=== PATIENT | male | born 1950 ===

== ENCOUNTER 2019-02-17 08:50 | Emergency (ER) | payer OTHER ==
[~2019-02-17] VITALS: Ht 167.6 cm; Wt 82.6 kg
[2019-02-17] MEDS ORDERED: COZAAR100 MG (09:19)
[2019-02-17] MEDS ORDERED: ZOCOR20 MG (09:20)
[2019-02-17] MEDS ORDERED: GLYXAMBI 25 MG1 EACH (09:20)
[2019-02-17] MEDS ORDERED: FENOFIBRATE145 MG (09:20)
[2019-02-17] MEDS ORDERED: ORPHENADRINE C100 MG PO (12:22)
[2019-02-17] MEDS ORDERED: KETOROLAC TROME10 MG PO (12:22)
== END 2019-02-17 12:50 | disposition home or self-care (01) ==
LOC: ER 08:50
DX: M54.5 Low back pain (principal); M25.562 Pain in left knee

== ENCOUNTER 2019-02-23 10:10 | Emergency (ER) | payer OTHER ==
[~2019-02-23] VITALS: Ht 167.6 cm; Wt 82.6 kg
[~2019-02-23 10:10] MED LIST: COZAAR100 MG; FENOFIBRATE145 MG; GLYXAMBI 25 MG1 EACH; KETOROLAC TROME10 MG PO; ORPHENADRINE C100 MG PO; ZOCOR20 MG
[2019-02-23] MEDS ORDERED: KENALOG100 GM (10:36)
== END 2019-02-23 13:58 | disposition home or self-care (01) ==
LOC: ER 10:10
DX: K29.70 Gastritis, unspecified, without bleeding (principal)